=== PATIENT | female | born 1945 | race Caucasian/White ===

== ENCOUNTER 2020-10-10 10:50 | Observation (INO) ==
[~2020-10-10 10:50] MED LIST: Albuterol 2.5 MG/3 ML NEBULIZER IH PRN; Ondansetron 4 MG/2 ML VIAL IVP PRN
[2020-10-10] MEDS ORDERED: Ringers Solution, Lactated 1,000 ML IVC SCH (12:30)
[2020-10-10] MEDS ORDERED: *HR* FentaNYL (PF) 100 MCG/2 ML VIAL ONE (13:41)
[2020-10-10] MEDS ORDERED: *HR* Propofol 200 MG/20 ML VIAL IVP ONE (13:41)
[2020-10-10] MEDS ORDERED: *HR* Succinylcholine 200 MG/10 ML VIAL IVP ONE (13:42)
[2020-10-10] MEDS ORDERED: Lidocaine -MPF 4% 5 ML AMPUL ONE (13:42)
[2020-10-10] MEDS ORDERED: Lidocaine -MPF 2% 2 ML VIAL ONE (13:42)
[2020-10-10] MEDS ORDERED: Ondansetron 4 MG/2 ML VIAL ONE (13:42)
[2020-10-10] MEDS ORDERED: Dexamethasone 4 MG/ML VIAL ONE (13:42)
[2020-10-10] MEDS ORDERED: *HR* PHENYLEPHRINE 1,000 MCG/10 ML SYRINGE IVP ONE (14:17)
[2020-10-10] MEDS ORDERED: *HR* EPINEPHrine 1 MG/10 ML SYRINGE INTRATRACH PRN (14:48)
[2020-10-10] MEDS: Ipratropium/Albuterol Neb 3 ML IH SCH (21:56)
[2020-10-11] MEDS: Ipratropium/Albuterol Neb 3 ML IH SCH ×2 (03:30→09:56)
[2020-10-11] MEDS ORDERED: *HR* Enoxaparin 40 MG/0.4 ML SYRINGE SQ SCH (06:00)
[2020-10-11 06:39] LABS: Hematocrit 33.4 % (35.3-44.9); Hemoglobin 10.6 g/dL (11.5-15.4); Mean Corpuscular HGB Conc 31.7 g/dL (31.6-35.5); Mean Corpuscular Hemoglobin 29.4 pg (28.0-33.3); Mean Corpuscular Volume 92.5 fL (83.0-100.0); Mean Platelet Volume 8.8 fL (9.4-12.4); Platelet Count 187 K/mcL (140-400); Red Blood Count 3.61 M/mcL (3.82-4.97); Red Cell Distribution Width 14.2 % (11.5-14.5); White Blood Count 7.8 K/mcL (4.3-11.1)
[2020-10-11 07:04] LABS: Alanine Aminotransferase 11 Units/L (7-52); Albumin 3.5 g/dL (3.5-5.7); Albumin/Globulin Ratio 1.3 (1.1-2.2); Alkaline Phosphatase 55 Units/L (34-104); Aspartate Amino Transferase 16 Units/L (13-39); BUN/Creatinine Ratio 28 (6-26); Bilirubin,Direct 0.1 mg/dL (0.0-0.2); Bilirubin,Indirect 0.3 mg/dL (0.0-1.0); Bilirubin,Total 0.4 mg/dL (0.3-1.0); Blood Urea Nitrogen 19 mg/dL (8-23); Calcium 9.2 mg/dL (8.6-10.3); Carbon Dioxide 26 mEq/L (23-29); Chloride 101 mEq/L (98-107); Globulin 2.7 g/dL (2.4-3.5); Glucose 137 mg/dL (70-105); Magnesium 1.7 mg/dL (1.6-2.6); Osmolality,Calculated 282 (280-300); Phosphorous 3.2 mg/dL (2.7-4.5); Potassium 4.2 mEq/L (3.5-5.1); Sodium 134 mEq/L (136-145); Total Protein 6.2 g/dL (6.4-8.9); eGFR For African Americans > 60 (> 60); eGFR For Non-African Americans > 60 (> 60)
[2020-10-11 10:31] LABS: Source of Body Fluid LEFT LOWER LOBE LUNG
[2020-10-11 10:52] LABS: Appearance of Body Fluid Clear (Clear); Volume of Body Fluid 10 mL
[2020-10-11 12:25] VITALS: BP 120/64
== END 2020-10-11 15:01 | disposition home or self-care (01) ==
LOC: SAMDAY 10:50 → 3ANU 10:50
PROVIDERS: ADMIT Internal Medicine; ATTEND Internal Medicine
PROC: ENDOBBX (2020-10-10 12:00)

== ENCOUNTER 2021-01-30 16:06 | Inpatient (IN) ==
[2021-01-30 16:48] LABS: VBG HCO3 28 mEq/L (21-27); VBG PCO2 45 mmHg (41-51); VBG PH 7.39 pH Units (7.32-7.42); VBG PO2 41 mmHg (25-50)
[2021-01-30] MEDS ORDERED: Ipratropium/Albuterol Neb 3 ML IH ONE (16:48)
[2021-01-30] MEDS ORDERED: methylPREDNISolone 125 MG/2 ML VIAL IVP ONE (16:48)
[2021-01-30 16:51] LABS: Basophils % 0.4 %; Eosinophils # 0.2 K/mcL (0.0-0.6); Eosinophils % 3.3 %; Hematocrit 32.4 % (35.3-44.9); Hemoglobin 10.3 g/dL (11.5-15.4); Immature Granulocytes % 1.2 % (0-4); Lymphocytes # 0.9 K/mcL (0.6-4.6); Lymphocytes % 12.9 %; Mean Corpuscular HGB Conc 31.8 g/dL (31.6-35.5); Mean Corpuscular Hemoglobin 29.9 pg (28.0-33.3); Mean Corpuscular Volume 93.9 fL (83.0-100.0); Monocytes # 0.5 K/mcL (0.0-1.3); Monocytes % 7.8 %; Neutrophils # 5.2 K/mcL (1.6-8.9); Platelet Count 191 K/mcL (140-400); Red Blood Count 3.45 M/mcL (3.82-4.97); Segmented Neutrophils % 74.4 %; White Blood Count 6.9 K/mcL (4.3-11.1)
[2021-01-30 17:19] LABS: Alanine Aminotransferase 15 Units/L (7-52); Albumin 3.6 g/dL (3.5-5.7); Albumin/Globulin Ratio 1.2 (1.1-2.2); Alkaline Phosphatase 58 Units/L (34-104); Aspartate Amino Transferase 17 Units/L (13-39); BUN/Creatinine Ratio 21 (6-26); Bilirubin,Direct 0.1 mg/dL (0.0-0.2); Bilirubin,Indirect 0.7 mg/dL (0.0-1.0); Bilirubin,Total 0.8 mg/dL (0.3-1.0); Blood Urea Nitrogen 13 mg/dL (8-23); Calcium 9.3 mg/dL (8.6-10.3); Carbon Dioxide 27 mEq/L (23-29); Chloride 99 mEq/L (98-107); Glucose 106 mg/dL (70-105); Osmolality,Calculated 279 (280-300); Potassium 4.4 mEq/L (3.5-5.1); Sodium 134 mEq/L (136-145); Total Protein 6.6 g/dL (6.4-8.9); Troponin I < 0.03 ng/mL (< 0.04); eGFR For African Americans > 60 (> 60); eGFR For Non-African Americans > 60 (> 60)
[2021-01-30] MEDS ORDERED: *HR* Heparin 5,000 UNIT/ML VIAL IVP PRN ×2 (19:38)
[2021-01-30] MEDS ORDERED: *HR* Heparin 5,000 UNIT/ML VIAL IVP ONE (19:38)
[2021-01-30] MEDS ORDERED: Heparin 25,000UNIT/250ML 1/2NS 25,000 UNIT/250 ML IV.SOLN IVC SCH (19:45)
[2021-01-30] MEDS ORDERED: Naloxone 0.4 MG/ML INJ IVP PRN (20:54)
[2021-01-30 21:06] LABS: INR 1.3; Prothrombin Time 14.6 Seconds (9.4-12.1)
[2021-01-30 21:09] LABS: Heparin anti-factor XA UFH < 0.04 IU/mL (0.30-0.70)
[2021-01-30] MEDS ORDERED: Ondansetron ODT 4 MG TAB.RAPDIS SL PRN (21:36)
[2021-01-30] MEDS ORDERED: Acetaminophen 325 MG TABLET PO PRN (21:36)
[2021-01-30] MEDS: levoFLOXacin 500 MG TABLET PO SCH (22:18)
[2021-01-30] MEDS: MethylPREDNISolone 40 MG/ML VIAL IVP SCH (22:18)
[2021-01-30 22:26] LABS: D-Dimer 702 ng/mLFEU (0-500)
[2021-01-30 23:36] LABS: Adenovirus Not Detected (Not Detect); Bordetella Pertussis Not Detected (Not Detect); Chlamydophila pneumoniae Not Detected (Not Detect); Coronavirus 229E Not Detected (Not Detect); Coronavirus HKU1 Not Detected (Not Detect); Coronavirus NL63 Not Detected (Not Detect); Coronavirus OC43 Not Detected (Not Detect); Human Metapneumovirus Not Detected (Not Detect); Human Rhinovirus/Enterovirus Not Detected (Not Detect); Influenza A Subtype 2009 H1 Not Detected (Not Detect); Influenza B Not Detected (Not Detect); Mycoplasma pneumoniae Not Detected (Not Detect); Parainfluenza Virus 1 Not Detected (Not Detect); Parainfluenza Virus 2 Not Detected (Not Detect); Parainfluenza Virus 3 Not Detected (Not Detect); Parainfluenza Virus 4 Not Detected (Not Detect); Respiratory Syncytial Virus Not Detected (Not Detect); SARS-CoV-2 Not Detected (Not Detect)
[2021-01-31] MEDS: Budesonide/Formoterol 160/4.5 1 PUFF INH IH SCH ×3 (00:11→19:51)
[2021-01-31] MEDS: Ipratropium/Albuterol Neb 3 ML IH SCH ×7 (00:11→23:53)
[2021-01-31 03:18] LABS: BUN/Creatinine Ratio 23 (6-26); Blood Urea Nitrogen 16 mg/dL (8-23); Calcium 8.9 mg/dL (8.6-10.3); Carbon Dioxide 24 mEq/L (23-29); Chloride 100 mEq/L (98-107); Glucose 304 mg/dL (70-105); Magnesium 1.6 mg/dL (1.6-2.6); Osmolality,Calculated 291 (280-300); Phosphorous 2.1 mg/dL (2.7-4.5); Potassium 3.8 mEq/L (3.5-5.1); Sodium 134 mEq/L (136-145); eGFR For African Americans > 60 (> 60); eGFR For Non-African Americans > 60 (> 60)
[2021-01-31] MEDS ORDERED: hydrOXYzine pamoate 25 MG CAPSULE PO PRN (03:34)
[2021-01-31] MEDS: MethylPREDNISolone 40 MG/ML VIAL IVP SCH ×2 (07:43→17:09)
[2021-01-31] MEDS: levoFLOXacin 500 MG TABLET PO SCH (07:43)
[2021-01-31 10:35] LABS: Hematocrit 30.1 % (35.3-44.9); Hemoglobin 9.3 g/dL (11.5-15.4); Mean Corpuscular HGB Conc 30.9 g/dL (31.6-35.5); Mean Corpuscular Hemoglobin 29.2 pg (28.0-33.3); Mean Corpuscular Volume 94.7 fL (83.0-100.0); Mean Platelet Volume 8.9 fL (9.4-12.4); Platelet Count 216 K/mcL (140-400); Red Blood Count 3.18 M/mcL (3.82-4.97); Red Cell Distribution Width 15.9 % (11.5-14.5); White Blood Count 6.2 K/mcL (4.3-11.1)
[2021-01-31] MEDS: *HR* Heparin 5,000 UNIT/ML VIAL SQ SCH (17:09)
[2021-02-01] MEDS: MethylPREDNISolone 40 MG/ML VIAL IVP SCH ×4 (00:12→23:21)
[2021-02-01 03:04] LABS: Eosinophils % 0.3 %; Lymphocytes % 4.7 %; Red Cell Distribution Width 15.7 % (11.5-14.5)
[2021-02-01 03:06] LABS: Hematocrit 31.6 % (35.3-44.9); Hemoglobin 9.9 g/dL (11.5-15.4); Immature Granulocytes % 0.9 % (0-4); Immature Platelets 2.8 % (1.1-6.1); Lymphocytes # 0.5 K/mcL (0.6-4.6); Mean Corpuscular HGB Conc 31.3 g/dL (31.6-35.5); Mean Corpuscular Hemoglobin 29.6 pg (28.0-33.3); Mean Corpuscular Volume 94.6 fL (83.0-100.0); Mean Platelet Volume 9.9 fL (9.4-12.4); Monocytes # 0.3 K/mcL (0.0-1.3); Monocytes % 2.6 %; Neutrophils # 8.7 K/mcL (1.6-8.9); Platelet Count 241 K/mcL (140-400); Red Blood Count 3.34 M/mcL (3.82-4.97); Segmented Neutrophils % 91.5 %; White Blood Count 9.5 K/mcL (4.3-11.1)
[2021-02-01] MEDS: Ipratropium/Albuterol Neb 3 ML IH SCH ×6 (03:45→23:00)
[2021-02-01] MEDS: *HR* Heparin 5,000 UNIT/ML VIAL SQ SCH ×2 (05:26→16:05)
[2021-02-01 06:36] LABS: BUN/Creatinine Ratio 25 (6-26); Blood Urea Nitrogen 21 mg/dL (8-23); Calcium 8.9 mg/dL (8.6-10.3); Carbon Dioxide 29 mEq/L (23-29); Chloride 101 mEq/L (98-107); Glucose 151 mg/dL (70-105); Osmolality,Calculated 284 (280-300); Phosphorous 3.6 mg/dL (2.7-4.5); Potassium 5.2 mEq/L (3.5-5.1); Sodium 134 mEq/L (136-145); eGFR For African Americans > 60 (> 60); eGFR For Non-African Americans > 60 (> 60)
[2021-02-01] MEDS: Budesonide/Formoterol 160/4.5 1 PUFF INH IH SCH ×2 (07:32→19:36)
[2021-02-01] MEDS: levoFLOXacin 500 MG TABLET PO SCH (08:57)
[2021-02-02] MEDS: Ipratropium/Albuterol Neb 3 ML IH SCH ×7 (01:02→23:32)
[2021-02-02 04:53] LABS: Basophils % 0.1 %; Hematocrit 31.2 % (35.3-44.9); Hemoglobin 10.1 g/dL (11.5-15.4); Immature Granulocytes % 2.4 % (0-4); Lymphocytes # 0.5 K/mcL (0.6-4.6); Lymphocytes % 5.1 %; Mean Corpuscular HGB Conc 32.4 g/dL (31.6-35.5); Mean Corpuscular Hemoglobin 30.5 pg (28.0-33.3); Mean Corpuscular Volume 94.3 fL (83.0-100.0); Mean Platelet Volume 8.5 fL (9.4-12.4); Monocytes # 0.4 K/mcL (0.0-1.3); Monocytes % 4.1 %; Neutrophils # 8.3 K/mcL (1.6-8.9); Platelet Count 220 K/mcL (140-400); Red Blood Count 3.31 M/mcL (3.82-4.97); Red Cell Distribution Width 15.9 % (11.5-14.5); Segmented Neutrophils % 88.3 %; White Blood Count 9.5 K/mcL (4.3-11.1)
[2021-02-02 05:12] LABS: BUN/Creatinine Ratio 30 (6-26); Blood Urea Nitrogen 23 mg/dL (8-23); Calcium 8.6 mg/dL (8.6-10.3); Carbon Dioxide 28 mEq/L (23-29); Chloride 101 mEq/L (98-107); Glucose 137 mg/dL (70-105); Osmolality,Calculated 284 (280-300); Phosphorous 2.7 mg/dL (2.7-4.5); Potassium 4.4 mEq/L (3.5-5.1); Sodium 134 mEq/L (136-145); eGFR For African Americans > 60 (> 60); eGFR For Non-African Americans > 60 (> 60)
[2021-02-02] MEDS: *HR* Heparin 5,000 UNIT/ML VIAL SQ SCH ×2 (05:18→16:33)
[2021-02-02] MEDS: Budesonide/Formoterol 160/4.5 1 PUFF INH IH SCH ×2 (07:36→19:35)
[2021-02-02] MEDS: MethylPREDNISolone 40 MG/ML VIAL IVP SCH ×2 (08:14→16:33)
[2021-02-02] MEDS: levoFLOXacin 500 MG TABLET PO SCH (08:14)
[2021-02-03] MEDS: MethylPREDNISolone 40 MG/ML VIAL IVP SCH ×4 (00:53→23:56)
[2021-02-03 03:00] LABS: Basophils % 0.4 %; Hematocrit 32.1 % (35.3-44.9); Hemoglobin 9.7 g/dL (11.5-15.4); Immature Granulocytes % 4.3 % (0-4); Lymphocytes # 0.5 K/mcL (0.6-4.6); Lymphocytes % 5.8 %; Mean Corpuscular HGB Conc 30.2 g/dL (31.6-35.5); Mean Corpuscular Hemoglobin 28.9 pg (28.0-33.3); Mean Corpuscular Volume 95.5 fL (83.0-100.0); Mean Platelet Volume 8.6 fL (9.4-12.4); Monocytes # 0.6 K/mcL (0.0-1.3); Neutrophils # 6.8 K/mcL (1.6-8.9); Platelet Count 223 K/mcL (140-400); Red Blood Count 3.36 M/mcL (3.82-4.97); Red Cell Distribution Width 16.1 % (11.5-14.5); Segmented Neutrophils % 82.5 %; White Blood Count 8.3 K/mcL (4.3-11.1)
[2021-02-03 03:15] LABS: BUN/Creatinine Ratio 40 (6-26); Blood Urea Nitrogen 31 mg/dL (8-23); Calcium 8.5 mg/dL (8.6-10.3); Carbon Dioxide 31 mEq/L (23-29); Chloride 101 mEq/L (98-107); Glucose 146 mg/dL (70-105); Osmolality,Calculated 291 (280-300); Phosphorous 2.9 mg/dL (2.7-4.5); Potassium 4.4 mEq/L (3.5-5.1); Sodium 136 mEq/L (136-145); eGFR For African Americans > 60 (> 60); eGFR For Non-African Americans > 60 (> 60)
[2021-02-03] MEDS: Ipratropium/Albuterol Neb 3 ML IH SCH ×6 (03:28→23:43)
[2021-02-03] MEDS: *HR* Heparin 5,000 UNIT/ML VIAL SQ SCH ×2 (04:51→17:52)
[2021-02-03] MEDS: Budesonide/Formoterol 160/4.5 1 PUFF INH IH SCH ×2 (07:47→19:42)
[2021-02-03] MEDS: levoFLOXacin 500 MG TABLET PO SCH (09:04)
[2021-02-04] MEDS: Ipratropium/Albuterol Neb 3 ML IH SCH ×6 (04:04→23:52)
[2021-02-04 05:43] LABS: Hematocrit 33.4 % (35.3-44.9); Hemoglobin 10.3 g/dL (11.5-15.4); Mean Corpuscular HGB Conc 30.8 g/dL (31.6-35.5); Mean Corpuscular Hemoglobin 29.7 pg (28.0-33.3); Mean Corpuscular Volume 96.3 fL (83.0-100.0); Mean Platelet Volume 8.7 fL (9.4-12.4); Nucleated Red Blood Cells 0.3 /100 WBC (0); Platelet Count 204 K/mcL (140-400); Red Blood Count 3.47 M/mcL (3.82-4.97); White Blood Count 7.5 K/mcL (4.3-11.1)
[2021-02-04 06:04] LABS: BUN/Creatinine Ratio 41 (6-26); Blood Urea Nitrogen 30 mg/dL (8-23); Calcium 8.4 mg/dL (8.6-10.3); Carbon Dioxide 28 mEq/L (23-29); Chloride 100 mEq/L (98-107); Glucose 165 mg/dL (70-105); Osmolality,Calculated 288 (280-300); Phosphorous 3.1 mg/dL (2.7-4.5); Potassium 4.9 mEq/L (3.5-5.1); Sodium 134 mEq/L (136-145); eGFR For African Americans > 60 (> 60); eGFR For Non-African Americans > 60 (> 60)
[2021-02-04 06:34] LABS: Hypochromasia Present (Not Present); Lymphocytes # 0.6 K/mcL (0.6-4.6); Monocytes # 0.6 K/mcL (0.0-1.3); Neutrophils # 6.3 K/mcL (1.6-8.9); Platelet Estimate Normal (Normal)
[2021-02-04] MEDS: *HR* Heparin 5,000 UNIT/ML VIAL SQ SCH ×2 (06:37→17:29)
[2021-02-04] MEDS: Budesonide/Formoterol 160/4.5 1 PUFF INH IH SCH ×2 (07:31→20:16)
[2021-02-04] MEDS: levoFLOXacin 500 MG TABLET PO SCH (08:22)
[2021-02-04] MEDS: MethylPREDNISolone 40 MG/ML VIAL IVP SCH ×3 (08:22→23:09)
[2021-02-05] MEDS: Ipratropium/Albuterol Neb 3 ML IH SCH ×5 (03:39→19:48)
[2021-02-05] MEDS: *HR* Heparin 5,000 UNIT/ML VIAL SQ SCH ×2 (05:03→17:21)
[2021-02-05 05:56] LABS: Basophils # 0.1 K/mcL (0.0-0.2); Basophils % 0.8 %; Hematocrit 34.1 % (35.3-44.9); Hemoglobin 10.5 g/dL (11.5-15.4); Immature Granulocytes % 6.7 % (0-4); Lymphocytes # 0.5 K/mcL (0.6-4.6); Lymphocytes % 5.4 %; Mean Corpuscular HGB Conc 30.8 g/dL (31.6-35.5); Mean Corpuscular Hemoglobin 29.7 pg (28.0-33.3); Mean Corpuscular Volume 96.3 fL (83.0-100.0); Mean Platelet Volume 8.4 fL (9.4-12.4); Monocytes # 0.3 K/mcL (0.0-1.3); Monocytes % 3.8 %; Nucleated Red Blood Cells 0.2 /100 WBC (0); Platelet Count 202 K/mcL (140-400); Red Blood Count 3.54 M/mcL (3.82-4.97); Red Cell Distribution Width 15.9 % (11.5-14.5); Segmented Neutrophils % 83.3 %; White Blood Count 8.4 K/mcL (4.3-11.1)
[2021-02-05 06:15] LABS: BUN/Creatinine Ratio 43 (6-26); Blood Urea Nitrogen 35 mg/dL (8-23); Calcium 8.2 mg/dL (8.6-10.3); Carbon Dioxide 30 mEq/L (23-29); Chloride 98 mEq/L (98-107); Glucose 183 mg/dL (70-105); Magnesium 2.1 mg/dL (1.6-2.6); Osmolality,Calculated 287 (280-300); Phosphorous 3.5 mg/dL (2.7-4.5); Potassium 5.1 mEq/L (3.5-5.1); Sodium 132 mEq/L (136-145); eGFR For African Americans > 60 (> 60); eGFR For Non-African Americans > 60 (> 60)
[2021-02-05 06:19] LABS: Anisocytosis 1+ (Not Present); Basophilic Stippling 1+ (Not Present); Platelet Estimate Normal (Normal)
[2021-02-05] MEDS: Budesonide/Formoterol 160/4.5 1 PUFF INH IH SCH ×2 (07:17→19:48)
[2021-02-05] MEDS: levoFLOXacin 500 MG TABLET PO SCH (08:19)
[2021-02-05] MEDS: MethylPREDNISolone 40 MG/ML VIAL IVP SCH ×3 (08:19→23:40)
[2021-02-06] MEDS: Ipratropium/Albuterol Neb 3 ML IH SCH ×3 (00:06→07:18)
[2021-02-06 02:34] LABS: Hematocrit 32.7 % (35.3-44.9); Hemoglobin 10.4 g/dL (11.5-15.4); Mean Corpuscular HGB Conc 31.8 g/dL (31.6-35.5); Mean Corpuscular Hemoglobin 30.4 pg (28.0-33.3); Mean Corpuscular Volume 95.6 fL (83.0-100.0); Mean Platelet Volume 8.5 fL (9.4-12.4); Nucleated Red Blood Cells 0.2 /100 WBC (0); Platelet Count 202 K/mcL (140-400); Red Blood Count 3.42 M/mcL (3.82-4.97); Red Cell Distribution Width 16.2 % (11.5-14.5); White Blood Count 8.6 K/mcL (4.3-11.1)
[2021-02-06 02:49] LABS: BUN/Creatinine Ratio 44 (6-26); Blood Urea Nitrogen 33 mg/dL (8-23); Calcium 8.1 mg/dL (8.6-10.3); Carbon Dioxide 28 mEq/L (23-29); Chloride 99 mEq/L (98-107); Glucose 181 mg/dL (70-105); Osmolality,Calculated 288 (280-300); Phosphorous 2.8 mg/dL (2.7-4.5); Potassium 4.8 mEq/L (3.5-5.1); Sodium 133 mEq/L (136-145); eGFR For African Americans > 60 (> 60); eGFR For Non-African Americans > 60 (> 60)
[2021-02-06 03:01] LABS: Anisocytosis 1+ (Not Present); Lymphocytes # 0.5 K/mcL (0.6-4.6); Neutrophils # 7.9 K/mcL (1.6-8.9); Platelet Estimate Normal (Normal)
[2021-02-06] MEDS: *HR* Heparin 5,000 UNIT/ML VIAL SQ SCH (05:55)
[2021-02-06] MEDS: Budesonide/Formoterol 160/4.5 1 PUFF INH IH SCH (07:18)
[2021-02-06 07:38] VITALS: BP 147/73; PULSE 75; TEMP 97.7; O2SAT 99
[2021-02-06] MEDS: levoFLOXacin 500 MG TABLET PO SCH (07:54)
[2021-02-06] MEDS: MethylPREDNISolone 40 MG/ML VIAL IVP SCH (07:54)
== END 2021-02-06 10:49 | disposition home or self-care (01) | DRG 190 ==
LOC: EMEROOARM 16:06 → 2ANU 16:06
PROVIDERS: ADMIT Student in an Organized Health Care Education/Training Program; ATTEND Student in an Organized Health Care Education/Training Program

== ENCOUNTER 2021-05-29 16:21 | Inpatient (IN) ==
[2021-05-29] MEDS ORDERED: Isovue-370 500 ML BOTTLE IVP ONE (17:52)
[2021-05-29] MEDS ORDERED: methylPREDNISolone 125 MG/2 ML VIAL IVP ONE (17:53)
[2021-05-29 18:30] LABS: Basophils % 0.3 %; Eosinophils # 0.2 K/mcL (0.0-0.6); Eosinophils % 1.8 %; Hematocrit 37.8 % (35.3-44.9); Hemoglobin 11.8 g/dL (11.5-15.4); Immature Granulocytes % 0.3 % (0-4); Lymphocytes # 1.1 K/mcL (0.6-4.6); Lymphocytes % 9.5 %; Mean Corpuscular HGB Conc 31.2 g/dL (31.6-35.5); Mean Corpuscular Hemoglobin 28.9 pg (28.0-33.3); Mean Corpuscular Volume 92.6 fL (83.0-100.0); Monocytes % 8.4 %; Neutrophils # 9.5 K/mcL (1.6-8.9); Platelet Count 192 K/mcL (140-400); Red Blood Count 4.08 M/mcL (3.82-4.97); Red Cell Distribution Width 15.1 % (11.5-14.5); Segmented Neutrophils % 79.7 %; White Blood Count 11.9 K/mcL (4.3-11.1)
[2021-05-29 18:46] LABS: INR 1.4; Prothrombin Time 15.4 Seconds (9.4-12.1)
[2021-05-29 18:48] LABS: Activated Partial Thrombo Time 34.9 Seconds (26.0-36.0)
[2021-05-29 18:51] LABS: Alanine Aminotransferase 12 Units/L (7-52); Albumin 3.6 g/dL (3.5-5.7); Albumin/Globulin Ratio 1.1 (1.1-2.2); Alkaline Phosphatase 70 Units/L (34-104); Aspartate Amino Transferase 19 Units/L (13-39); BUN/Creatinine Ratio 19 (6-26); Bilirubin,Direct 0.2 mg/dL (0.0-0.2); Bilirubin,Indirect 0.6 mg/dL (0.0-1.0); Bilirubin,Total 0.8 mg/dL (0.3-1.0); Blood Urea Nitrogen 16 mg/dL (8-23); Calcium 9.1 mg/dL (8.6-10.3); Carbon Dioxide 28 mEq/L (23-29); Chloride 98 mEq/L (98-107); Globulin 3.3 g/dL (2.4-3.5); Glucose 101 mg/dL (70-105); Osmolality,Calculated 277 (280-300); Potassium 4.5 mEq/L (3.5-5.1); Sodium 133 mEq/L (136-145); Total Protein 6.9 g/dL (6.4-8.9); eGFR For African Americans > 60 (> 60); eGFR For Non-African Americans > 60 (> 60)
[2021-05-29 19:01] LABS: Troponin I 0.04 ng/mL (< 0.04)
[2021-05-29] MEDS ORDERED: Aspirin 325 MG TABLET PO ONE (19:28)
[2021-05-29 19:40] LABS: ABG Base Excess 1 mEq/L (-2 to 3); ABG HCO3 27 mEq/L (21-27); ABG Oxygen Saturation 94 % (95-98); ABG PCO2 47 mmHg (35-45); ABG PH 7.37 pH Units (7.32-7.45); ABG PO2 73 mmHg (85-104); ABG TCO2 29 mEq/L (20-26)
[2021-05-29] MEDS ORDERED: Naloxone 0.4 MG/ML INJ IVP PRN (22:41)
[2021-05-29] MEDS ORDERED: Melatonin 3 MG TABLET PO PRN (22:41)
[2021-05-29] MEDS ORDERED: Acetaminophen 325 MG TABLET PO PRN (22:41)
[2021-05-29] MEDS ORDERED: levoFLOXacin 500 MG/100 ML 500 MG/100 ML BAG IVPB SCH (23:00)
[2021-05-30] MEDS: Ipratropium/Albuterol Neb 3 ML IH SCH ×7 (00:11→23:39)
[2021-05-30 03:22] LABS: Basophils % 0.2 %; Hematocrit 36.6 % (35.3-44.9); Hemoglobin 11.4 g/dL (11.5-15.4); Immature Granulocytes % 0.7 % (0-4); Lymphocytes # 0.5 K/mcL (0.6-4.6); Lymphocytes % 5.4 %; Mean Corpuscular HGB Conc 31.1 g/dL (31.6-35.5); Mean Corpuscular Hemoglobin 29.2 pg (28.0-33.3); Mean Corpuscular Volume 93.6 fL (83.0-100.0); Mean Platelet Volume 9.1 fL (9.4-12.4); Monocytes % 0.2 %; Neutrophils # 9.2 K/mcL (1.6-8.9); Platelet Count 172 K/mcL (140-400); Red Blood Count 3.91 M/mcL (3.82-4.97); Red Cell Distribution Width 14.8 % (11.5-14.5); Segmented Neutrophils % 93.5 %; White Blood Count 9.9 K/mcL (4.3-11.1)
[2021-05-30 03:41] LABS: BUN/Creatinine Ratio 22 (6-26); Blood Urea Nitrogen 16 mg/dL (8-23); Calcium 8.7 mg/dL (8.6-10.3); Carbon Dioxide 27 mEq/L (23-29); Chloride 98 mEq/L (98-107); Glucose 309 mg/dL (70-105); Osmolality,Calculated 289 (280-300); Potassium 4.4 mEq/L (3.5-5.1); Sodium 133 mEq/L (136-145); eGFR For African Americans > 60 (> 60); eGFR For Non-African Americans > 60 (> 60)
[2021-05-30] MEDS ORDERED: methylPREDNISolone 125 MG/2 ML VIAL IVP SCH ×2 (08:00)
[2021-05-30 10:38] LABS: Adenovirus Not Detected (Not Detect); Bordetella Pertussis Not Detected (Not Detect); Chlamydophila pneumoniae Not Detected (Not Detect); Coronavirus 229E Not Detected (Not Detect); Coronavirus HKU1 Not Detected (Not Detect); Coronavirus NL63 Not Detected (Not Detect); Coronavirus OC43 Not Detected (Not Detect); Human Metapneumovirus Not Detected (Not Detect); Human Rhinovirus/Enterovirus Not Detected (Not Detect); Influenza A Subtype 2009 H1 Not Detected (Not Detect); Influenza B Not Detected (Not Detect); Mycoplasma pneumoniae Not Detected (Not Detect); Parainfluenza Virus 1 Not Detected (Not Detect); Parainfluenza Virus 2 Not Detected (Not Detect); Parainfluenza Virus 3 Not Detected (Not Detect); Parainfluenza Virus 4 Not Detected (Not Detect); Respiratory Syncytial Virus Not Detected (Not Detect); SARS-CoV-2 Not Detected (Not Detect)
[2021-05-30] MEDS ORDERED: Dextrose Gel 15 GM/37.5 ML TUBE PO PRN ×2 (11:00)
[2021-05-30] MEDS ORDERED: *HR* Dextrose 50 % in Water (Syg) 50 ML SYRINGE IVP PRN (11:00)
[2021-05-30] MEDS ORDERED: D5% in Water 1,000 ML IVC PRN (11:00)
[2021-05-30] MEDS: Insulin LISPRO 300 UNITS/3 ML VIAL SUBQ SCH ×2 (12:10→16:33)
[2021-05-30] MEDS: Budesonide/Formoterol 160/4.5 1 PUFF INH IH SCH (20:03)
[2021-05-30] MEDS: levoFLOXacin 750 MG/150 ML 750 MG/150 ML BAG IVPB SCH (22:21)
[2021-05-30 22:49] LABS: Bilirubin,Urine Negative (Negative); Blood,Urine Negative (Negative); Clarity,Urine Clear (Clear); Color,Urine Yellow (Yellow); Glucose,Urine (UA) Normal (Normal); Ketones,Urine Negative (Negative); Leukocyte Esterase,Urine Negative (Negative); Nitrite,Urine Negative (Negative); Protein,Urine Trace mg/dL (Neg-Trace); Specific Gravity,Urine 1.026 (1.010-1.025); Urobilinogen,Urine Normal (Normal)
[2021-05-31 03:21] LABS: Basophils % 0.1 %; Hematocrit 34.1 % (35.3-44.9); Immature Granulocytes % 0.5 % (0-4); Lymphocytes # 0.7 K/mcL (0.6-4.6); Mean Corpuscular HGB Conc 32.3 g/dL (31.6-35.5); Mean Corpuscular Hemoglobin 29.6 pg (28.0-33.3); Mean Corpuscular Volume 91.7 fL (83.0-100.0); Mean Platelet Volume 8.8 fL (9.4-12.4); Monocytes # 0.8 K/mcL (0.0-1.3); Monocytes % 6.9 %; Neutrophils # 10.2 K/mcL (1.6-8.9); Platelet Count 179 K/mcL (140-400); Red Blood Count 3.72 M/mcL (3.82-4.97); Red Cell Distribution Width 14.6 % (11.5-14.5); Segmented Neutrophils % 86.5 %; White Blood Count 11.8 K/mcL (4.3-11.1)
[2021-05-31 03:26] LABS: VBG HCO3 27 mEq/L (21-27); VBG PCO2 41 mmHg (41-51); VBG PH 7.43 pH Units (7.32-7.42); VBG PO2 94 mmHg (25-50)
[2021-05-31 03:40] LABS: BUN/Creatinine Ratio 27 (6-26); Blood Urea Nitrogen 20 mg/dL (8-23); Calcium 8.7 mg/dL (8.6-10.3); Carbon Dioxide 29 mEq/L (23-29); Chloride 100 mEq/L (98-107); Glucose 117 mg/dL (70-105); Osmolality,Calculated 280 (280-300); Potassium 4.7 mEq/L (3.5-5.1); Sodium 133 mEq/L (136-145); eGFR For African Americans > 60 (> 60); eGFR For Non-African Americans > 60 (> 60)
[2021-05-31 03:54] LABS: Estimated Average Glucose 108 mg/dl; Hemoglobin A1C 5.4 %
[2021-05-31] MEDS: Ipratropium/Albuterol Neb 3 ML IH SCH ×6 (04:07→23:07)
[2021-05-31] MEDS: Insulin LISPRO 300 UNITS/3 ML VIAL SUBQ SCH ×3 (07:26→16:04)
[2021-05-31] MEDS: Budesonide/Formoterol 160/4.5 1 PUFF INH IH SCH (08:41)
[2021-05-31] MEDS ORDERED: methylPREDNISolone 125 MG/2 ML VIAL IVP SCH (09:00)
[2021-05-31] MEDS: Melatonin 3 MG TABLET PO SCH (20:12)
[2021-05-31 22:34] LABS: ABG Base Excess 4 mEq/L (-2 to 3); ABG HCO3 30 mEq/L (21-27); ABG Oxygen Saturation 98 % (95-98); ABG PCO2 52 mmHg (35-45); ABG PH 7.37 pH Units (7.32-7.45); ABG PO2 103 mmHg (85-104); ABG TCO2 32 mEq/L (20-26)
[2021-06-01] MEDS: levoFLOXacin 750 MG/150 ML 750 MG/150 ML BAG IVPB SCH ×2 (00:14→23:06)
[2021-06-01] MEDS: Ipratropium/Albuterol Neb 3 ML IH SCH ×6 (03:10→23:37)
[2021-06-01 03:25] LABS: Basophils % 0.3 %; Eosinophils % 0.1 %; Hematocrit 38.2 % (35.3-44.9); Hemoglobin 11.4 g/dL (11.5-15.4); Immature Granulocytes % 1.1 % (0-4); Lymphocytes % 9.8 %; Mean Corpuscular HGB Conc 29.8 g/dL (31.6-35.5); Mean Corpuscular Hemoglobin 28.4 pg (28.0-33.3); Mean Corpuscular Volume 95.3 fL (83.0-100.0); Mean Platelet Volume 8.9 fL (9.4-12.4); Monocytes # 0.9 K/mcL (0.0-1.3); Monocytes % 8.3 %; Neutrophils # 8.4 K/mcL (1.6-8.9); Platelet Count 218 K/mcL (140-400); Red Blood Count 4.01 M/mcL (3.82-4.97); Red Cell Distribution Width 14.6 % (11.5-14.5); Segmented Neutrophils % 80.4 %; White Blood Count 10.5 K/mcL (4.3-11.1)
[2021-06-01 03:42] LABS: BUN/Creatinine Ratio 29 (6-26); Blood Urea Nitrogen 30 mg/dL (8-23); Carbon Dioxide 32 mEq/L (23-29); Chloride 101 mEq/L (98-107); Glucose 117 mg/dL (70-105); Osmolality,Calculated 287 (280-300); Potassium 4.8 mEq/L (3.5-5.1); Sodium 135 mEq/L (136-145); eGFR For African Americans > 60 (> 60); eGFR For Non-African Americans 52 (> 60)
[2021-06-01] MEDS: Budesonide/Formoterol 160/4.5 1 PUFF INH IH SCH ×2 (07:36→19:47)
[2021-06-01] MEDS: Insulin LISPRO 300 UNITS/3 ML VIAL SUBQ SCH ×3 (07:48→16:45)
[2021-06-01] MEDS: Ondansetron 4 MG/2 ML VIAL IVP PRN (07:56)
[2021-06-01] MEDS: predniSONE 20 MG TABLET PO SCH (07:57)
[2021-06-01] MEDS: Melatonin 3 MG TABLET PO SCH (20:11)
[2021-06-02] MEDS: Ipratropium/Albuterol Neb 3 ML IH SCH ×5 (03:44→19:38)
[2021-06-02] MEDS: Budesonide/Formoterol 160/4.5 1 PUFF INH IH SCH ×2 (07:35→19:40)
[2021-06-02] MEDS: Insulin LISPRO 300 UNITS/3 ML VIAL SUBQ SCH ×3 (07:45→16:52)
[2021-06-02] MEDS: Ondansetron 4 MG/2 ML VIAL IVP PRN (08:47)
[2021-06-02] MEDS: predniSONE 20 MG TABLET PO SCH (08:53)
[2021-06-02] MEDS: levoFLOXacin 750 MG TABLET PO SCH (20:34)
[2021-06-02] MEDS: Melatonin 3 MG TABLET PO SCH (20:34)
[2021-06-03] MEDS: Ipratropium/Albuterol Neb 3 ML IH SCH ×7 (00:01→23:07)
[2021-06-03] MEDS: Ondansetron 4 MG/2 ML VIAL IVP PRN (06:03)
[2021-06-03] MEDS: Budesonide/Formoterol 160/4.5 1 PUFF INH IH SCH ×2 (07:25→19:36)
[2021-06-03] MEDS: Insulin LISPRO 300 UNITS/3 ML VIAL SUBQ SCH ×3 (07:32→16:54)
[2021-06-03] MEDS ORDERED: predniSONE 20 MG TABLET PO SCH (09:00)
[2021-06-03] MEDS ORDERED: Bisacodyl 10 MG RECTAL SUPPOSITORY RC ONE (10:33)
[2021-06-03] MEDS ORDERED: Sennosides 8.6 MG TABLET PO ONE (10:34)
[2021-06-03] MEDS ORDERED: Milk and Molasses Enema 200 ML RC ONE (16:00)
[2021-06-03] MEDS: levoFLOXacin 750 MG TABLET PO SCH (21:13)
[2021-06-03] MEDS: Melatonin 3 MG TABLET PO SCH (21:13)
[2021-06-04 03:40] VITALS: PULSE 60
[2021-06-04] MEDS: Ondansetron 4 MG/2 ML VIAL IVP PRN (03:44)
[2021-06-04] MEDS: Ipratropium/Albuterol Neb 3 ML IH SCH ×3 (03:45→11:09)
[2021-06-04] MEDS: Budesonide/Formoterol 160/4.5 1 PUFF INH IH SCH (07:20)
[2021-06-04 07:46] VITALS: BP 134/78; TEMP 97.9
[2021-06-04] MEDS: Insulin LISPRO 300 UNITS/3 ML VIAL SUBQ SCH ×2 (08:22→11:33)
[2021-06-04] MEDS ORDERED: predniSONE 20 MG TABLET PO SCH (09:00)
[2021-06-04 15:02] VITALS: O2SAT 96
== END 2021-06-04 15:29 | disposition home health service (06) | DRG 193 ==
LOC: EMEROOARM 16:21 → 2ANU 16:21 → MERGE 22:17 → SUATTDRO 22:17 → 2ANU 22:48
PROVIDERS: ADMIT Internal Medicine; ATTEND Internal Medicine

== ENCOUNTER 2021-09-18 10:10 | Observation (INO) ==
[2021-09-18] MEDS ORDERED: *HR* FentaNYL (PF) 100 MCG/2 ML VIAL IVP ONE (12:56)
[2021-09-18] MEDS ORDERED: *HR* Midazolam HCl 2 MG/2 ML VIAL IVP ONE (12:56)
[2021-09-18] MEDS ORDERED: 0.9 % Sodium Chloride 500 ML ONE (12:58)
[2021-09-18] MEDS ORDERED: Melatonin 3 MG TABLET PO PRN (15:20)
[2021-09-18] MEDS ORDERED: Ondansetron 4 MG/2 ML VIAL IVP PRN (15:20)
[2021-09-18] MEDS ORDERED: Naloxone 0.4 MG/ML INJ IVP PRN (15:20)
[2021-09-18] MEDS ORDERED: Acetaminophen 325 MG TABLET PO PRN (15:20)
[2021-09-18] MEDS ORDERED: Bismuth Subsalicylate 120 ML ORAL SUSPENSION PO ONE (15:25)
[2021-09-18] MEDS ORDERED: *HR* Metoprolol 5 MG/5 ML VIAL IVP PRN (15:43)
[2021-09-18] MEDS ORDERED: *HR* Labetalol 20 MG/4 ML SYRINGE IVP ONE (15:43)
[2021-09-18] MEDS: lisinopriL 5 MG TABLET PO SCH (16:26)
[2021-09-18 17:27] LABS: Alanine Aminotransferase 9 Units/L (7-52); Albumin 3.3 g/dL (3.5-5.7); Albumin/Globulin Ratio 1.1 (1.1-2.2); Alkaline Phosphatase 72 Units/L (34-104); Aspartate Amino Transferase 17 Units/L (13-39); BUN/Creatinine Ratio 18 (6-26); Bilirubin,Indirect 0.6 mg/dL (0.0-1.0); Bilirubin,Total 0.6 mg/dL (0.3-1.0); Blood Urea Nitrogen 10 mg/dL (8-23); Calcium 9.1 mg/dL (8.6-10.3); Carbon Dioxide 32 mEq/L (23-29); Chloride 100 mEq/L (98-107); Globulin 2.9 g/dL (2.4-3.5); Glucose 121 mg/dL (70-105); Osmolality,Calculated 286 (280-300); Potassium 4.3 mEq/L (3.5-5.1); Sodium 138 mEq/L (136-145); Total Protein 6.2 g/dL (6.4-8.9); Troponin I < 0.03 ng/mL (< 0.04); eGFR For African Americans > 60 (> 60); eGFR For Non-African Americans > 60 (> 60)
[2021-09-18] MEDS: *HR* Heparin 5,000 UNIT/ML VIAL SQ SCH (17:36)
[2021-09-18] MEDS: Budesonide/Formoterol 80/4.5 1 PUFF INH IH SCH (20:37)
[2021-09-18 22:07] LABS: Amorphous Sediment,Urine Few per hpf (None-Few); Bilirubin,Urine Negative (Negative); Blood,Urine Negative (Negative); Clarity,Urine Turbid (Clear); Color,Urine Yellow (Yellow); Glucose,Urine (UA) Normal (Normal); Ketones,Urine Negative (Negative); Leukocyte Esterase,Urine Negative (Negative); Mucus,Urine Few per lpf (None-Few); Nitrite,Urine Negative (Negative); PH,Urine 7.5 pH Units (5.0-8.0); Protein,Urine Trace mg/dL (Neg-Trace); RBC,Urine 0-3 per hpf (0-3); Specific Gravity,Urine 1.023 (1.010-1.025); Squamous Epithelial Cell,Urine Few per hpf (None-Few); Urobilinogen,Urine Normal (Normal); WBC,Urine 0-3 per hpf (0-3)
[2021-09-18 22:13] LABS: Amphetamine Screen,Urine Negative ng/mL (Cutoff=1000); Barbiturate Screen,Urine Negative ng/mL (Cutoff=200); Benzodiazepines Screen,Urine Negative ng/mL (Cutoff=200); Cannabinoid Screen,Urine Negative ng/mL (Cutoff = 50); Cocaine Screen,Urine Negative ng/mL (Cutoff= 300); Opiate Screen,Urine Negative ng/mL (Cutoff=300); Phencyclidine Screen,Urine Negative ng/mL (Cutoff=25)
[2021-09-18 23:41] LABS: Basophils % 0.3 %; Eosinophils # 0.2 K/mcL (0.0-0.6); Eosinophils % 2.9 %; Hematocrit 33.1 % (35.3-44.9); Hemoglobin 10.5 g/dL (11.5-15.4); Immature Granulocytes % 0.3 % (0-4); Lymphocytes # 1.1 K/mcL (0.6-4.6); Lymphocytes % 16.3 %; Mean Corpuscular HGB Conc 31.7 g/dL (31.6-35.5); Mean Corpuscular Volume 94.6 fL (83.0-100.0); Mean Platelet Volume 8.8 fL (9.4-12.4); Monocytes # 0.7 K/mcL (0.0-1.3); Monocytes % 9.5 %; Neutrophils # 4.9 K/mcL (1.6-8.9); Platelet Count 150 K/mcL (140-400); Red Cell Distribution Width 14.2 % (11.5-14.5); Segmented Neutrophils % 70.7 %; White Blood Count 6.9 K/mcL (4.3-11.1)
[2021-09-19 05:14] LABS: Basophils % 0.3 %; Eosinophils # 0.2 K/mcL (0.0-0.6); Eosinophils % 3.8 %; Hematocrit 32.7 % (35.3-44.9); Hemoglobin 10.4 g/dL (11.5-15.4); Immature Granulocytes % 0.5 % (0-4); Lymphocytes # 1.2 K/mcL (0.6-4.6); Lymphocytes % 19.8 %; Mean Corpuscular HGB Conc 31.8 g/dL (31.6-35.5); Mean Corpuscular Hemoglobin 30.1 pg (28.0-33.3); Mean Corpuscular Volume 94.5 fL (83.0-100.0); Mean Platelet Volume 8.8 fL (9.4-12.4); Monocytes # 0.6 K/mcL (0.0-1.3); Monocytes % 9.6 %; Platelet Count 147 K/mcL (140-400); Red Blood Count 3.46 M/mcL (3.82-4.97); Red Cell Distribution Width 14.2 % (11.5-14.5); White Blood Count 6.1 K/mcL (4.3-11.1)
[2021-09-19 05:55] LABS: Alanine Aminotransferase 8 Units/L (7-52); Albumin 3.3 g/dL (3.5-5.7); Albumin/Globulin Ratio 1.3 (1.1-2.2); Alkaline Phosphatase 66 Units/L (34-104); Aspartate Amino Transferase 13 Units/L (13-39); BUN/Creatinine Ratio 22 (6-26); Bilirubin,Total 0.6 mg/dL (0.3-1.0); Blood Urea Nitrogen 13 mg/dL (8-23); Calcium 8.9 mg/dL (8.6-10.3); Carbon Dioxide 33 mEq/L (23-29); Chloride 98 mEq/L (98-107); Globulin 2.5 g/dL (2.4-3.5); Glucose 103 mg/dL (70-105); Osmolality,Calculated 282 (280-300); Potassium 4.1 mEq/L (3.5-5.1); Sodium 136 mEq/L (136-145); Total Protein 5.8 g/dL (6.4-8.9); eGFR For African Americans > 60 (> 60); eGFR For Non-African Americans > 60 (> 60)
[2021-09-19] MEDS: *HR* Heparin 5,000 UNIT/ML VIAL SQ SCH ×2 (06:06→17:10)
[2021-09-19] MEDS: Budesonide/Formoterol 80/4.5 1 PUFF INH IH SCH ×2 (07:26→20:41)
[2021-09-19] MEDS: lisinopriL 5 MG TABLET PO SCH (09:18)
[2021-09-19] MEDS: Ipratropium 1 PUFF INHALER IH PRN (15:30)
[2021-09-20] MEDS: *HR* Heparin 5,000 UNIT/ML VIAL SQ SCH (06:15)
[2021-09-20 07:31] VITALS: BP 115/59; PULSE 67; TEMP 97.9; O2SAT 96
[2021-09-20] MEDS: Budesonide/Formoterol 80/4.5 1 PUFF INH IH SCH (07:48)
[2021-09-20] MEDS: Ipratropium 1 PUFF INHALER IH PRN (07:48)
[2021-09-20] MEDS: lisinopriL 5 MG TABLET PO SCH (08:14)
== END 2021-09-20 10:30 | disposition home or self-care (01) ==
LOC: RAD 10:10 → 3BNU 10:10 → SUATTDRO 14:48
PROVIDERS: ADMIT Internal Medicine; ATTEND Registered Nurse

== ENCOUNTER 2021-10-22 11:43 | Inpatient (IN) ==
[2021-10-22] MEDS ORDERED: 0.9 % Sodium Chloride 1,000 ML IVC ONE (12:04)
[2021-10-22 12:51] LABS: VBG Ionized Calcium 1.26 mmol/L (1.15-1.35)
[2021-10-22 12:54] LABS: Eosinophils % 1.8 %; Hematocrit 35.2 % (35.3-44.9); Hemoglobin 11.1 g/dL (11.5-15.4); Immature Granulocytes % 0.6 % (0-4); Lymphocytes % 12.8 %; Mean Corpuscular HGB Conc 31.5 g/dL (31.6-35.5); Mean Corpuscular Hemoglobin 30.3 pg (28.0-33.3); Mean Corpuscular Volume 96.2 fL (83.0-100.0); Mean Platelet Volume 8.9 fL (9.4-12.4); Monocytes % 6.7 %; Platelet Count 175 K/mcL (140-400); Red Blood Count 3.66 M/mcL (3.82-4.97); Red Cell Distribution Width 14.2 % (11.5-14.5); Segmented Neutrophils % 77.8 %; White Blood Count 6.3 K/mcL (4.3-11.1)
[2021-10-22 12:55] LABS: Basophils % 0.3 %; Eosinophils # 0.1 K/mcL (0.0-0.6); Lymphocytes # 0.8 K/mcL (0.6-4.6); Monocytes # 0.4 K/mcL (0.0-1.3); Neutrophils # 4.9 K/mcL (1.6-8.9)
[2021-10-22 13:33] LABS: Alanine Aminotransferase 13 Units/L (7-52); Albumin 3.4 g/dL (3.5-5.7); Albumin/Globulin Ratio 1.2 (1.1-2.2); Alkaline Phosphatase 64 Units/L (34-104); Aspartate Amino Transferase 21 Units/L (13-39); BUN/Creatinine Ratio 16 (6-26); Bilirubin,Indirect 0.5 mg/dL (0.0-1.0); Bilirubin,Total 0.5 mg/dL (0.3-1.0); Blood Urea Nitrogen 9 mg/dL (8-23); Calcium 9.6 mg/dL (8.6-10.3); Carbon Dioxide 40 mEq/L (23-29); Chloride 94 mEq/L (98-107); Globulin 2.9 g/dL (2.4-3.5); Glucose 114 mg/dL (70-105); Lipase 28 Units/L (11-82); Magnesium 1.7 mg/dL (1.6-2.6); Osmolality,Calculated 286 (280-300); Phosphorous 3.8 mg/dL (2.7-4.5); Potassium 4.4 mEq/L (3.5-5.1); Sodium 138 mEq/L (136-145); Thyroid Stimulating Hormone 1.407 mcIU/mL (0.340-5.600); Total Protein 6.3 g/dL (6.4-8.9); Troponin I < 0.03 ng/mL (< 0.04); eGFR For African Americans > 60 (> 60); eGFR For Non-African Americans > 60 (> 60)
[2021-10-22 14:17] LABS: Bilirubin,Urine Negative (Negative); Blood,Urine Negative (Negative); Clarity,Urine Clear (Clear); Color,Urine Light-Yellow (Yellow); Glucose,Urine (UA) Normal (Normal); Ketones,Urine Negative (Negative); Leukocyte Esterase,Urine Negative (Negative); Nitrite,Urine Negative (Negative); PH,Urine 6.5 pH Units (5.0-8.0); Protein,Urine Negative (Neg-Trace); Specific Gravity,Urine 1.013 (1.010-1.025); Urobilinogen,Urine Normal (Normal)
[2021-10-22] MEDS ORDERED: Naloxone 0.4 MG/ML INJ IVP PRN (16:58)
[2021-10-22] MEDS ORDERED: Furosemide 20 MG/2 ML VIAL IVP ONE (17:22)
[2021-10-22] MEDS: levoFLOXacin 750 MG TABLET PO SCH (19:02)
[2021-10-22] MEDS: predniSONE 20 MG TABLET PO SCH (19:03)
[2021-10-22] MEDS: Ipratropium/Albuterol Neb 3 ML IH SCH ×2 (20:20→23:35)
[2021-10-23] MEDS: Ipratropium/Albuterol Neb 3 ML IH SCH ×6 (03:49→23:16)
[2021-10-23] MEDS: predniSONE 20 MG TABLET PO SCH (09:56)
[2021-10-23] MEDS ORDERED: Isovue-370 500 ML BOTTLE IVP ONE (12:23)
[2021-10-23] MEDS ORDERED: Gadolinium Contrast Agent (WT Based) IV PRN (12:29)
[2021-10-23] MEDS ORDERED: Lidocaine -MPF 1% 5 ML AMPUL INFILT ONE (14:40)
[2021-10-23] MEDS: allopurinoL 300 MG TABLET PO SCH (16:32)
[2021-10-23] MEDS ORDERED: predniSONE 10 MG TABLET PO ONE ×3 (17:00→22:00)
[2021-10-23] MEDS ORDERED: *HR* LORazepam 2 MG/ML VIAL IVP ONE ×2 (17:03→22:51)
[2021-10-23] MEDS: levoFLOXacin 750 MG TABLET PO SCH (19:51)
[2021-10-23] MEDS ORDERED: *HR* Metoprolol 5 MG/5 ML VIAL IVP ONE (22:50)
[2021-10-24] MEDS ORDERED: 0.9 % Sodium Chloride 500 ML IVC SCH
[2021-10-24] MEDS: Ipratropium/Albuterol Neb 3 ML IH SCH ×6 (03:26→23:53)
[2021-10-24 03:27] LABS: ABG Base Excess 10 mEq/L (-2 to 3); ABG HCO3 38 mEq/L (21-27); ABG Oxygen Saturation 89 % (95-98); ABG PCO2 64 mmHg (35-45); ABG PH 7.38 pH Units (7.32-7.45); ABG PO2 61 mmHg (85-104); ABG TCO2 40 mEq/L (20-26); Blood Gas Modality BiLevel; Blood Gas VT 480 cc
[2021-10-24] MEDS: predniSONE 20 MG TABLET PO SCH (08:00)
[2021-10-24] MEDS: allopurinoL 300 MG TABLET PO SCH (08:00)
[2021-10-24 09:28] LABS: Hemoglobin 11.1 g/dL (11.5-15.4); Immature Granulocytes % 0.6 % (0-4); Lymphocytes # 0.7 K/mcL (0.6-4.6); Lymphocytes % 10.4 %; Mean Corpuscular HGB Conc 31.7 g/dL (31.6-35.5); Mean Corpuscular Hemoglobin 31.2 pg (28.0-33.3); Mean Corpuscular Volume 98.3 fL (83.0-100.0); Mean Platelet Volume 8.9 fL (9.4-12.4); Monocytes # 0.3 K/mcL (0.0-1.3); Neutrophils # 5.3 K/mcL (1.6-8.9); Platelet Count 188 K/mcL (140-400); Red Blood Count 3.56 M/mcL (3.82-4.97); Red Cell Distribution Width 14.3 % (11.5-14.5); White Blood Count 6.3 K/mcL (4.3-11.1)
[2021-10-24 09:57] LABS: Alanine Aminotransferase 11 Units/L (7-52); Albumin 3.3 g/dL (3.5-5.7); Albumin/Globulin Ratio 1.3 (1.1-2.2); Alkaline Phosphatase 54 Units/L (34-104); Aspartate Amino Transferase 16 Units/L (13-39); BUN/Creatinine Ratio 24 (6-26); Bilirubin,Total 0.3 mg/dL (0.3-1.0); Blood Urea Nitrogen 17 mg/dL (8-23); Calcium 9.4 mg/dL (8.6-10.3); Carbon Dioxide 41 mEq/L (23-29); Chloride 95 mEq/L (98-107); Globulin 2.5 g/dL (2.4-3.5); Glucose 129 mg/dL (70-105); Osmolality,Calculated 287 (280-300); Potassium 4.4 mEq/L (3.5-5.1); Sodium 137 mEq/L (136-145); Total Protein 5.8 g/dL (6.4-8.9); Uric Acid 5.4 mg/dL (2.3-7.6); eGFR For African Americans > 60 (> 60); eGFR For Non-African Americans > 60 (> 60)
[2021-10-24] MEDS ORDERED: Dexamethasone Sodium Phos/PF 10 MG/ML VIAL IVP ONE (10:30)
[2021-10-24] MEDS ORDERED: Famotidine 20 MG/2 ML VIAL IVP PRN (10:30)
[2021-10-24] MEDS ORDERED: Hydrocortisone Sodium Succ 100 MG/2 ML VIAL IVP PRN (10:30)
[2021-10-24] MEDS ORDERED: EPINEPHrine 1 MG/ML VIAL SQ PRN (10:30)
[2021-10-24] MEDS ORDERED: Albuterol 2.5 MG/3 ML NEBULIZER IH PRN (10:30)
[2021-10-24] MEDS ORDERED: Fosaprepitant Dimeglumine 150 MG in 0.9 % Sodium Chloride 250 ML IVPB ONE (10:30)
[2021-10-24] MEDS ORDERED: *HR* LORazepam 2 MG/ML VIAL IVP PRN (10:30)
[2021-10-24] MEDS ORDERED: Prochlorperazine 10 MG/2 ML VIAL IVP PRN (10:30)
[2021-10-24] MEDS ORDERED: SODIUM CHLORIDE EXCEL BG 0.9% IVPB SCH (11:00)
[2021-10-24] MEDS ORDERED: ETOPOSIDE IVPB SCH (11:00)
[2021-10-24] MEDS ORDERED: CARBOplatin 480 MG in 0.9 % Sodium Chloride 250 ML IVPB SCH (12:30)
[2021-10-24] MEDS: levoFLOXacin 750 MG TABLET PO SCH (17:24)
[2021-10-24] MEDS ORDERED: *HR* LORazepam 2 MG/ML VIAL IVP ONE (20:59)
[2021-10-25] MEDS: Ipratropium/Albuterol Neb 3 ML IH SCH ×5 (04:19→20:21)
[2021-10-25] MEDS: *HR* Enoxaparin 40 MG/0.4 ML SYRINGE SQ SCH (06:41)
[2021-10-25] MEDS ORDERED: *HR* Metoprolol 5 MG/5 ML VIAL IVP PRN (08:15)
[2021-10-25 08:56] LABS: Basophils % 0.4 %; Eosinophils % 0.1 %; Hematocrit 42.3 % (35.3-44.9); Hemoglobin 12.6 g/dL (11.5-15.4); Immature Granulocytes % 2.8 % (0-4); Lymphocytes # 0.7 K/mcL (0.6-4.6); Mean Corpuscular HGB Conc 29.8 g/dL (31.6-35.5); Mean Corpuscular Hemoglobin 30.7 pg (28.0-33.3); Mean Corpuscular Volume 102.9 fL (83.0-100.0); Mean Platelet Volume 8.8 fL (9.4-12.4); Monocytes # 0.7 K/mcL (0.0-1.3); Monocytes % 9.1 %; Platelet Count 223 K/mcL (140-400); Red Blood Count 4.11 M/mcL (3.82-4.97); Red Cell Distribution Width 14.6 % (11.5-14.5); Segmented Neutrophils % 78.6 %; White Blood Count 7.6 K/mcL (4.3-11.1)
[2021-10-25] MEDS ORDERED: dexAMETHasone 4 MG TABLET PO SCH (09:00)
[2021-10-25 09:15] LABS: VBG HCO3 40 mEq/L (21-27); VBG PCO2 116 mmHg (41-51); VBG PH 7.14 pH Units (7.32-7.42); VBG PO2 81 mmHg (25-50)
[2021-10-25] MEDS: allopurinoL 300 MG TABLET PO SCH (09:28)
[2021-10-25] MEDS: Pantoprazole 40 MG VIAL IVP SCH (09:28)
[2021-10-25] MEDS ORDERED: SODIUM CHLORIDE EXCEL BG 0.9% IVPB ONE (10:00)
[2021-10-25] MEDS ORDERED: Famotidine 20 MG/2 ML VIAL IVP PRN (10:00)
[2021-10-25] MEDS ORDERED: Hydrocortisone Sodium Succ 100 MG/2 ML VIAL IVP PRN (10:00)
[2021-10-25] MEDS ORDERED: Prochlorperazine 10 MG/2 ML VIAL IVP SCH (10:00)
[2021-10-25] MEDS ORDERED: 0.9 % Sodium Chloride 500 ML IVC SCH (10:00)
[2021-10-25] MEDS ORDERED: Albuterol 2.5 MG/3 ML NEBULIZER IH PRN (10:00)
[2021-10-25] MEDS ORDERED: *HR* LORazepam 2 MG/ML VIAL IVP PRN (10:00)
[2021-10-25] MEDS ORDERED: EPINEPHrine 1 MG/ML VIAL SQ PRN (10:00)
[2021-10-25] MEDS ORDERED: ETOPOSIDE IVPB ONE (10:00)
[2021-10-25 10:12] LABS: Alanine Aminotransferase 13 Units/L (7-52); Albumin 3.6 g/dL (3.5-5.7); Albumin/Globulin Ratio 1.2 (1.1-2.2); Alkaline Phosphatase 54 Units/L (34-104); Aspartate Amino Transferase 16 Units/L (13-39); BUN/Creatinine Ratio 39 (6-26); Bilirubin,Total 0.4 mg/dL (0.3-1.0); Blood Urea Nitrogen 27 mg/dL (8-23); Calcium 9.6 mg/dL (8.6-10.3); Carbon Dioxide 35 mEq/L (23-29); Chloride 98 mEq/L (98-107); Globulin 2.9 g/dL (2.4-3.5); Glucose 118 mg/dL (70-105); Osmolality,Calculated 296 (280-300); Potassium 5.1 mEq/L (3.5-5.1); Sodium 140 mEq/L (136-145); Total Protein 6.5 g/dL (6.4-8.9); eGFR For African Americans > 60 (> 60); eGFR For Non-African Americans > 60 (> 60)
[2021-10-25] MEDS ORDERED: Morphine Sulfate 2 MG/ML SYRINGE IVP PRN (16:43)
[2021-10-25] MEDS: levoFLOXacin 750 MG/150 ML 750 MG/150 ML BAG IVPB SCH (16:59)
[2021-10-25] MEDS: *HR* LORazepam 2 MG/ML VIAL IVP PRN (20:12)
[2021-10-25 20:47] LABS: VBG HCO3 38 mEq/L (21-27); VBG PCO2 80 mmHg (41-51); VBG PH 7.29 pH Units (7.32-7.42); VBG PO2 170 mmHg (25-50)
[2021-10-26] MEDS: Ipratropium/Albuterol Neb 3 ML IH SCH ×7 (00:01→23:18)
[2021-10-26] MEDS: *HR* LORazepam 2 MG/ML VIAL IVP PRN ×2 (04:56→20:36)
[2021-10-26 06:10] LABS: Basophils % 0.2 %; Hematocrit 40.3 % (35.3-44.9); Hemoglobin 12.2 g/dL (11.5-15.4); Immature Granulocytes % 0.6 % (0-4); Lymphocytes # 0.4 K/mcL (0.6-4.6); Mean Corpuscular HGB Conc 30.3 g/dL (31.6-35.5); Mean Corpuscular Hemoglobin 30.8 pg (28.0-33.3); Mean Corpuscular Volume 101.8 fL (83.0-100.0); Monocytes # 0.5 K/mcL (0.0-1.3); Monocytes % 5.7 %; Neutrophils # 7.2 K/mcL (1.6-8.9); Platelet Count 173 K/mcL (140-400); Red Blood Count 3.96 M/mcL (3.82-4.97); Red Cell Distribution Width 14.3 % (11.5-14.5); Segmented Neutrophils % 88.5 %; White Blood Count 8.2 K/mcL (4.3-11.1)
[2021-10-26] MEDS: *HR* Enoxaparin 40 MG/0.4 ML SYRINGE SQ SCH (06:25)
[2021-10-26 07:09] LABS: Alanine Aminotransferase 10 Units/L (7-52); Albumin 3.5 g/dL (3.5-5.7); Albumin/Globulin Ratio 1.3 (1.1-2.2); Alkaline Phosphatase 47 Units/L (34-104); Aspartate Amino Transferase 14 Units/L (13-39); BUN/Creatinine Ratio 54 (6-26); Bilirubin,Total 0.4 mg/dL (0.3-1.0); Blood Urea Nitrogen 48 mg/dL (8-23); Calcium 9.7 mg/dL (8.6-10.3); Carbon Dioxide 37 mEq/L (23-29); Chloride 99 mEq/L (98-107); Globulin 2.7 g/dL (2.4-3.5); Glucose 130 mg/dL (70-105); Osmolality,Calculated 306 (280-300); Potassium 5.1 mEq/L (3.5-5.1); Sodium 141 mEq/L (136-145); Total Protein 6.2 g/dL (6.4-8.9); Uric Acid 6.5 mg/dL (2.3-7.6); eGFR For African Americans > 60 (> 60); eGFR For Non-African Americans > 60 (> 60)
[2021-10-26] MEDS ORDERED: Morphine Sulfate 2 MG/ML SYRINGE IVP PRN (09:52)
[2021-10-26] MEDS: allopurinoL 300 MG TABLET PO SCH (11:30)
[2021-10-26] MEDS: Pantoprazole 40 MG VIAL IVP SCH (11:37)
[2021-10-26] MEDS ORDERED: methylPREDNISolone 125 MG/2 ML VIAL IVP ONE (14:00)
[2021-10-26] MEDS: levoFLOXacin 750 MG/150 ML 750 MG/150 ML BAG IVPB SCH (17:26)
[2021-10-26 18:11] LABS: VBG HCO3 39 mEq/L (21-27); VBG PCO2 82 mmHg (41-51); VBG PH 7.28 pH Units (7.32-7.42); VBG PO2 179 mmHg (25-50)
[2021-10-26] MEDS ORDERED: MethylPREDNISolone 40 MG/ML VIAL IVP SCH (22:00)
[2021-10-27] MEDS: *HR* LORazepam 2 MG/ML VIAL IVP PRN ×3 (01:29→10:44)
[2021-10-27] MEDS: Ipratropium/Albuterol Neb 3 ML IH SCH ×4 (03:50→15:59)
[2021-10-27] MEDS: *HR* Enoxaparin 40 MG/0.4 ML SYRINGE SQ SCH (05:50)
[2021-10-27 06:00] LABS: Hematocrit 39.7 % (35.3-44.9); Hemoglobin 12.3 g/dL (11.5-15.4); Immature Granulocytes % 0.3 % (0-4); Lymphocytes # 0.4 K/mcL (0.6-4.6); Lymphocytes % 6.5 %; Mean Corpuscular Hemoglobin 30.4 pg (28.0-33.3); Mean Platelet Volume 9.1 fL (9.4-12.4); Monocytes # 0.2 K/mcL (0.0-1.3); Monocytes % 3.2 %; Neutrophils # 5.4 K/mcL (1.6-8.9); Platelet Count 141 K/mcL (140-400); Red Blood Count 4.05 M/mcL (3.82-4.97); Red Cell Distribution Width 14.1 % (11.5-14.5)
[2021-10-27 07:13] LABS: Alanine Aminotransferase 11 Units/L (7-52); Albumin 3.6 g/dL (3.5-5.7); Albumin/Globulin Ratio 1.4 (1.1-2.2); Alkaline Phosphatase 43 Units/L (34-104); Aspartate Amino Transferase 15 Units/L (13-39); BUN/Creatinine Ratio 62 (6-26); Bilirubin,Total 0.5 mg/dL (0.3-1.0); Blood Urea Nitrogen 52 mg/dL (8-23); Calcium 9.9 mg/dL (8.6-10.3); Carbon Dioxide 43 mEq/L (23-29); Chloride 98 mEq/L (98-107); Globulin 2.5 g/dL (2.4-3.5); Glucose 130 mg/dL (70-105); Osmolality,Calculated 312 (280-300); Potassium 4.6 mEq/L (3.5-5.1); Sodium 143 mEq/L (136-145); Total Protein 6.1 g/dL (6.4-8.9); eGFR For African Americans > 60 (> 60); eGFR For Non-African Americans > 60 (> 60)
[2021-10-27] MEDS: allopurinoL 300 MG TABLET PO SCH (08:12)
[2021-10-27 08:45] LABS: VBG HCO3 41 mEq/L (21-27); VBG PCO2 71 mmHg (41-51); VBG PH 7.36 pH Units (7.32-7.42); VBG PO2 76 mmHg (25-50)
[2021-10-27] MEDS: Pantoprazole 40 MG VIAL IVP SCH (10:19)
[2021-10-27 11:08] VITALS: BP 147/83; PULSE 71; TEMP 97.5; O2SAT 99
[2021-10-27] MEDS ORDERED: Morphine Sulfate 2 MG/ML SYRINGE IVP PRN (11:45)
[2021-10-27] MEDS ORDERED: Haloperidol Lactate 5 MG/ML VIAL IVP PRN (11:47)
[2021-10-27] MEDS ORDERED: Atropine Sulfate 1% 40 DROP/2 ML BOTTLE SL PRN (13:47)
[2021-10-27] MEDS ORDERED: Lacri-Lube 3.5 GM TUBE BOTH EYES SCH (14:45)
== END 2021-10-27 15:13 | disposition expired | DRG 180 ==
LOC: EMEROOARM 11:43 → 2ANU 11:43 → SUATTDRO 16:42 → 2ANU 18:35 → 3BNU 19:09 → 3ANU 10-23 14:38 → 2ANU 10-27 12:01
PROVIDERS: ADMIT Nurse Practitioner; ATTEND Nurse Practitioner